=== PATIENT | female | born 1955 | race Caucasian/White ===

== ENCOUNTER 2017-09-03 15:02 | Outpatient (CLI) | payer OTHER ==
--- NOTE | 2017-09-03 15:40 | RAD ---
TWO VIEWS CHEST: History: Asthmatic bronchitis. FINDINGS: Two views of the chest shows a normal sized cardiomediastinal silhouette. Airspace opacity projects o frank the right lower lobe, likely secondary to an infiltrate. No pleural effusion is seen. IMPRESSION: Right lower lobe infiltrate. POS: [facility]
[2017-09-03 17:25] LABS: Bilirubin Moderate (Negative); Blood, Urine Trace (Negative); Glucose, Urine (Dipstick) 100 mg/dL (Negative); Leukocyte Negative (Negative); Nitrite Negative (Negative); Protein, Urine (Dipstick) 100 mg/dL (Neg-Trace); pH, Urine 5.5 (5.0-9.0)
[2017-09-03 17:28] LABS: #Basophils 0.1 thou/uL (0.0-0.2); #Eosinphils 0.1 thou/uL (0.0-0.7); #Lymphocytes 1.7 thou/uL (1.20-3.40); #Monocytes 0.8 thou/uL (0.11-0.59); #Neutrophils 8.5 thou/uL (1.40-6.50); %Basophils 0.5 % (0.0-1.0); %Eosinophils 0.8 % (0.0-10.0); %Monocytes 7.1 % (0.0-10.0); %Neutrophils 76.6 % (42.0-75.0); Hemoglobin 13.4 g/dL (12.0-16.0); Mean Corpuscular HGB CONC 32.5 g/dL (32.0-36.0); Mean Corpuscular Hemoglobin 29.2 pg (27.0-31.0); Mean Corpuscular Volume 89.9 fl (81.0-99.0); Mean Platelet Volume 6.8 fL (7.4-10.4); Platelet Count 420 thou/uL (130-400); RBC Distribution Width 13.2 % (11.5-14.5); White Blood Cell (WBC) Count 11.1 thou/uL (4.8-10.8)
[2017-09-03 17:48] LABS: Clarity Slightly Cloudy (Clear)
[2017-09-03 17:49] LABS: Bacteria/HPF 2+ HPF (None Seen); RBC/HPF 0-3 HPF (0-3); WBC/HPF 0-3 HPF (0-3)
== END 2017-09-03 15:03 | disposition home or self-care (01) ==
LOC: MADLAB 15:02
PROVIDERS: ATTEND Family Medicine
DX: J45.909 Unspecified asthma, uncomplicated (principal); J20.9 Acute bronchitis, unspecified; N39.0 Urinary tract infection, site not specified; R91.8 Other nonspecific abnormal finding of lung field
CPT/HCPCS: 36415; 71046; 85025

== ENCOUNTER 2019-03-07 12:38 | Outpatient (CLI) | payer MEDICARE ==
--- NOTE | 2019-03-07 13:44 | RAD ---
TWO VIEWS CHEST: Comparison: 09-03-17 History: Asthmatic. FINDINGS: Two views of the chest shows normal sized cardiomediastinal silhouette. There is a small right pleura l effusion with adjacent atelectasis versus infiltrate. No left sided infiltrates are seen. IMPRESSION: Right pleural effusion with adjacent atelectasis versus infiltrate. POS: [facility]
== END 2019-03-07 12:39 | disposition home or self-care (01) ==
LOC: MADRAD 12:38
PROVIDERS: ATTEND Family Medicine
DX: J45.909 Unspecified asthma, uncomplicated (principal); J90 Pleural effusion, not elsewhere classified
CPT/HCPCS: 71046